=== PATIENT | male | born 1985 | race Caucasian/White ===

== ENCOUNTER 2016-06-02 07:45 | Emergency (ER) | payer OTHER ==
[~2016-06-02] VITALS: Ht 167.6 cm; Wt 59.0 kg
[~2016-06-02 07:45] MED LIST: ALBUTEROL0.09 MG/A1 INH; POLYTRIM O200 GTT/BO OPH
[2016-06-02 07:49] VITALS: BP 120/77
--- NOTE | 2016-06-02 08:14 | ED HAND/WRIST INJURY COMPLAINT ---
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, old records Exam Limitations: no limitations (`) Vital Signs & Intake/Output Vital Signs & Intake/Output Vital Signs Date Time Temp Pulse Resp B/P Pulse O2 O2 Flow FiO2 Ox Delivery Rate 06/02 0749 97.7 65 16 120/77 98 Room Air Allergies Coded Allergies: NO KNOWN ALLERGIES (12/20/11) Reconcile Medications Albuterol Sulfate (Albuterol Sulfate Hfa) 8.5 GM HFA.AER.AD 2 PUFF INH Q4-6 PRN PRN SHORTNESS OF BREATH (Reported) 90 MCG PER PUFF Cephalexin (Keflex) 500 MG CAPSULE 1 CAP PO TID CELLULITIS Naproxen 500 MG TABLET 1 TAB PO BID PRN pain Polytrim (Polytrim Eye Drops) 10 ML DROPS 1 GTT OPH Q6 INFECTION Triage Note: PT STATES HE PULLED A CORD ON A GENERATOR AND HIS HAND GOT CAUGHT IN IT AND PT HAS LACERATION TO RIGHT POINTER FINGER AND WEB SPACE BETWEEN THUMB. Triage Nurses Notes Reviewed? yes Occurred: just prior to arrival Duration: hour(s): (1), constant Timing: recent history Injury Environment: work Severity: moderate, severe Severity Numbers: 9 Pain/Injury Location: Right: Hand. Context: laceration Method of Injury: laceration No Modifying Factors: none Associated Symptoms: none HPI: 30-year-old male presents emergency room status post sustaining laceration to his right hand is prior to arrival when he states he cut it when it struck a fan blade while at work. He states that he wrapped a cord around his hands he started generator when it pulled his hand towards the blade sustaining laceration. He now presents complaining of moderate to severe aching pain. He denies any numbness tingling or difficulty with range of motion of the hand wrist or fingers. He is right-hand dominant. His last tetanus is unknown. He is not taken anything for his pain. There are no associated symptoms or modifying factors otherwise Past History Travel History Traveled to [place] past 21 day No Medical History Any Pertinent Medical History? see below for history Respiratory: asthma Surgical History Surgical History: none Psychosocial History What is your primary language Ukrainian Tobacco Use: Current Daily Use Daily Tobacco Use Amount/Type: => 5 Cigarettes daily ETOH Use: occasional use Illicit Drug Use: METHADONE Family History Hx Contributory? No Review of Systems Review of Systems Constitutional: Reports: see HPI. All Other Systems: Reviewed and Negative Comments Review of systems: See HPI, All other systems negative. Constitutional, no chills no fever, no malaise HEENT: No visual changes no sore throat no congestion Cardiovascular: No chest pain , no palpitation Skin, no rashes, no change in skin Respiratory: No dyspnea no cough no sputum GI: No nausea no vomiting, no diarrhea : No dysuria Muscle skeletal: SEE HPI,No joint pain, no joint swelling, no back pain, no neck pain, Neurologic: No numbness no headache Psych: No stres Heme/endocrine: No bruising no bleeding Immunology: No lymphadenopathy Physical Exam Physical Exam General Appearance: well developed/nourished, alert, awake Hand Left: normal inspection, normal range of motion Hand Right: lacerations Comments: Well-developed well-nourished patient in no apparent distress. HEENT: Atraumatic, extraocular motion intact Neck: Supple, FROM, Back: FROM, Nontender Cardiovascular: Regular rate and rhythms no murmurs rubs Respiratory: No respiratory distress. Patient speaking in full complete sentences. Breath sounds clear to auscultation bilaterally: NO W/R/R Shoulder: Atraumatic/Stable. FROM . Elbow: Atraumatic/stable. FROM. No laxity Upper arm/Forearm: Atraumatic. Nontender. 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 No visualized or palpated foreign body Pulses: Normal/equal radial pulses bilaterally. Brisk cap refill Lower Extremities: full range of motion Neuro: Alert and oriented x3 Skin: Warm & dry;No appreciable rash on exposed skin Psych: Mood affect normal, normal memory normal judgment. Diagram Hands Back 1) Laceration as described above Progress Differential Diagnosis: cellulitis, contusion, compartment syndrome, fracture, sprain Plan of Care: Current Medications Sig/Nola Start time Last Medication Dose Stop Time Status Admin Hydromorphone HCl 1 MG ONCE ONE 06/02 829 CAN (Dilaudid) 06/02 830 Patient medicated with Toradol 30 IV tetanus, medicated with Unasyn IV x-rays ordered from triage The wound was thoroughly irrigated with normal saline Betadine peroxide. The wound was anesthetized by myself using lidocaine 1% 10 mL, sutures 18 3-0 applied. I discussed with the patient at length his x-ray findings. Volar wrist splint applied, neurovasc intact prior to and after application of splint I discussed with the patient at length all of their results. I had an extensive conversation regarding need for close follow up with their primary care physician, ortho, and plastics this week as well as return precautions. I answered all of their questions, they feel comfortable with the plan and follow- up care. I discussed with the patient possibility of foreign body not seen on examination the tendon injury exists RES already motion of all fingers and normal sensation. I discussed the medications that they will receive with the patient. I gave them signs and symptoms that could indicate an adverse reaction. I have advised them to limit their activities until they can see how they respond to the medication. (RUIZ MEJÍA,FELY) Diagnostic Imaging: Viewed by Me: Radiology Read. Discussed w/RAD: Radiology Read. Radiology Impression: PATIENT: BASIM GUTIERREZ PRESENT AGE: 30 PATIENT ACCOUNT NO: [id number] : 87 LOCATION: [facility] ([place]) ORDERING PHYSICIAN: FELY MEJÍA SERVICE DATE: 06/02/16 EXAM TYPE: RAD - XRY-HAND, RIGHT EXAMINATION: XR HAND, RIGHT CLINICAL INFORMATION: Pain and swelling after injury. COMPARISON: Plain films 06/13/2010. TECHNIQUE: AP, lateral, and oblique views of the right hand. FINDINGS: There is a nondisplaced acute fracture through the distal metaphysis of the second metacarpal bone. Alignment of the bones is normal and no other fractures are demonstrated. There is soft tissue swelling at the thenar eminence and over the dorsal metacarpal region. Bone mineralization is normal. The case wires seen on the prior study have been removed. There are no radiopaque foreign bodies. IMPRESSION: 1. There is a nondisplaced acute fracture of the distal metaphysis of the second metacarpal. 2. There is soft tissue swelling as described above. DICTATED BY: VINCENZO DON MD DATE/TIME DICTATED:06/02/16816 TICK ERADICATOR:ILDA DATE/TIME TRANSCRIBED:06/02/16816 CONFIDENTIAL, DO NOT COPY WITHOUT APPROPRIATE AUTHORIZATION. <Electronically signed in Other Vendor System> SIGNED BY: VINCENZO DON MD 06/02/16 0840 Departure Departure Time of Disposition: 938 Disposition: HOME OR SELF CARE Condition: Stable Clinical Impression Primary Impression: Hand laceration Secondary Impressions: Metacarpal bone fracture Referrals: MEDHAT MENJIVAR,ALISSA BRYAN MD,HONG PATIENT HAS NO PRIMARY CARE DR (PCP/Family) Additional Instructions: FOLLOW UP WITH ORTHOPEDIST DR MELÉNDEZ DISCUSSED REGARDING YOUR BROKEN HAND. KEEP SPLINT ON AT ALL TIMES FOLLOW UP WITH HAND SPECIALIST DR BRYAN. RETURN IN 48-72 HOURS FOR WOUND CHECK. Reflexes discussed for wound prophylaxis. Tylenol Motrin for pain ice packs as needed Keep area clean and covered as discussed, bacitracin daily. Return to ER in 10 days for suture removal. The possibility of a retained foreign body not seen during examination today or deep tendon injury exists. Return to ER anytime sooner with any concerns or signs of infection: Redness, warmth, swelling discharge fever or chills. Departure Forms: Customer Survey General Discharge Information Prescriptions: Current Visit Scripts Cephalexin (Keflex) 1 CAP PO TID #21 CAP Naproxen 1 TAB PO BID PRN pain #30 TAB Procedures Splinting Location: RUE Manual Alignment Performed: No Hand-Made Type: orthoglass Splint: volar Splint Applied By: splint applied by me Pre-Proc Neuro Vasc Exam: normal Post-Proc Neuro Vasc Exam: normal Laceration/Wound Repair Laceration/Wound Repair: Wound Location: upper extremity (RIGHT) Wound's Depth, Shape: linear, subcutaneous Wound Length (cm): 7 Wound Explored: clean, no foreign body removed, irrigated extensively Irrigated w/ Saline (ccs): 1000 Betadine Prep? Yes Anesthesia: 1% lidocaine Volume Anesthetic (ccs): 10 Wound Repaired With: sutures Suture Size/Type: 3:0 Number of Sutures: 18 Layer Closure? No Sterile Dressing Applied: Yes Splint Applied? Yes Date of Last Tetanus: 06/02/16 Tetanus Status: not up to date
--- NOTE | 2016-06-02 08:40 | RADIOLOGY REPORT ---
EXAMINATION: XR HAND, RIGHT CLINICAL INFORMATION: Pain and swelling after injury. COMPARISON: Plain films 06/13/2010. TECHNIQUE: AP, lateral, and oblique views of the right hand. FINDINGS: There is a nondisplaced acute fracture through the distal metaphysis of the second metacarpal bone. Alignment of the bones is normal and no other fractures are demonstrated. There is soft tissue swelling at the thenar eminence and over the dorsal metacarpal region. Bone mineralization is normal. The case wires seen on the prior study have been removed. There are no radiopaque foreign bodies. IMPRESSION: 1. There is a nondisplaced acute fracture of the distal metaphysis of the second metacarpal. 2. There is soft tissue swelling as described above.
[2016-06-02] MEDS ORDERED: KEFLEX500 M1 PO (09:42)
[2016-06-02] MEDS ORDERED: NAPROXEN500 M2 PO (10:11)
== END 2016-06-02 10:20 ==
LOC: ERH 07:45
DX: S62.390A Other fracture of second metacarpal bone, right hand, initial encounter for closed fracture (principal); S61.411A Laceration without foreign body of right hand, initial encounter; W22.8XXA Striking against or struck by other objects, initial encounter; Y93.9 Activity, unspecified; Y92.9 Unspecified place or not applicable
CPT/HCPCS: 73130-RT; 90471; 90714; 96374; 96375; J1885

== ENCOUNTER 2016-08-01 18:27 | Emergency (ER) | payer OTHER ==
[~2016-08-01] VITALS: Ht 167.6 cm; Wt 63.5 kg
[~2016-08-01 18:27] MED LIST changes: +KEFLEX500 M1 PO; +NAPROXEN500 M2 PO
[2016-08-01 18:33] VITALS: BP 112/78
--- NOTE | 2016-08-01 20:28 | ED DYSPNEA/ASTHMA COMPLAINT ---
History of Present Illness General Chief Complaint: Wheezing/Asthma Stated Complaint: PT HAVING A PROBLEM BREATHING [id number] Source: patient Exam Limitations: no limitations Vital Signs & Intake/Output Vital Signs & Intake/Output Vital Signs Date Time Temp Pulse Resp B/P B/P Pulse O2 O2 Flow FiO2 Mean Ox Delivery Rate 08/01 2122 98 Room Air 08/019 94 08/01 1833 98.2 88 16 112/78 96 Room Air ED Intake and Output 08/02 0000 08/01 1200 Intake Total 100 Output Total Balance 100 Intake, Oral 100 Patient 140 lb Weight Weight Reported by Patient Measurement Method Allergies Coded Allergies: NO KNOWN ALLERGIES (12/20/11) Reconcile Medications Albuterol Sulfate (Proair Hfa) 90 MCG HFA.AER.AD 2 PUF INH Q4-6 PRN PRN wheezing Prednisone (Deltasone) 20 MG TABLET 40 MG PO DAILY asthma Triage Note: PT STATES HE IS HAVING TROUBLE BREATHING AND IT STARTED A FEW HOURS AGO. 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 Triage Nurses Notes Reviewed? yes Onset: Abrupt Duration: hour(s): Timing: single episode today Severity: mild, moderate Activities at Onset: activity Prior Episodes/Possible Cause: frequent episodes, PHYSICAL ACTIVITY Modifying Factors: Worsens With: movement. Associated Symptoms: cough, wheezing HPI: 30-year-old male with a history of asthma presents complaining of cough shortness of breath and wheezing for the past day. Patient reports she was walking a long distance across town when symptoms started. He currently does not have insurance and does not use a rescue inhaler. He remained intubated or hospitalized for his asthma in the past. He recently quit smoking. Patient currently reports wheezing coughing and shortness of breath that is worse on exertion. He is not taking any medications. There are no alleviating factors. Patient denies chest pain fever sore throat or sick contacts. (JANELL CHIU PA-C) Past History Travel History Traveled to [place] past 21 day No Medical History Any Pertinent Medical History? see below for history Respiratory: asthma Endocrine: HYPOGLYCEMIA Tetanus Vaccine: 06/02/16 Surgical History Surgical History: none Psychosocial History What is your primary language Bengali Tobacco Use: Current Not Daily ETOH Use: denies use Illicit Drug Use: denies illicit drug use, METHADONE Family History Hx Contributory? Yes (JANELL CHIU PA-C) Review of Systems Review of Systems Constitutional: Reports: no symptoms. EENTM: Reports: no symptoms. Respiratory: Reports: see HPI, cough, short of breath, wheezing. Cardiovascular: Reports: no symptoms. GI: Reports: no symptoms. Genitourinary: Reports: no symptoms. Musculoskeletal: Reports: no symptoms. Skin: Reports: no symptoms. Neurological/Psychological: Reports: no symptoms. Hematologic/Endocrine: Reports: no symptoms. Immunologic/Allergic: Reports: no symptoms. All Other Systems: Reviewed and Negative (ARAM DAS,JANELL) Physical Exam Physical Exam General Appearance: well developed/nourished, no apparent distress, alert, awake , anxious, mild distress Head: atraumatic, normal appearance Eyes: Bilateral: normal appearance, PERRL, EOMI. Ears, Nose, Throat: normal pharynx, normal ENT inspection, hearing grossly normal Neck: normal inspection, supple, full range of motion Respiratory: chest non-tender, no respiratory distress, wheezing Cardiovascular: regular rate/rhythm, normal peripheral pulses Peripheral Pulses: 2+ dorsalis pedis (R), 2+ dorsalis pedis (L) Gastrointestinal: normal bowel sounds, soft, non-tender Extremities: normal inspection, normal capillary refill, normal range of motion, no edema Neurologic/Psych: no motor/sensory deficits, awake, alert, oriented x 3, normal gait, normal mood/affect Skin: intact, normal color, warm/dry Lymphatic: no anterior cervical gabbi Comments: Diffuse wheezing auscultated bilaterally. Significant only improved after DuoNeb. Core Measures ACS in differential dx? No Severe Sepsis Present: No Septic Shock Present: No (ARAM DAS,JANELL) Progress Differential Diagnosis: asthma, bronchitis, costochondritis, musculoskeletal pain, pericarditis, pneumonia, viral uri Plan of Care: Current Medications Sig/Nola Start time Last Medication Dose Stop Time Status Admin Methylprednisolone 125 MG ONCE ONE 08/01 2044 CAN (Solu Medrol) 08/01 2045 8:34 PM patient seen and evaluated. DuoNeb and PO prednisone was ordered will reassess patient after meds. 9:08 PM patient is feeling much better after DuoNeb. Wheezing is currently very mild. he be discharged home with albuterol inhaler and by mouth prednisone 40mg x 5 days. Advised patient to follow-up with his primary care doctor. he is nontoxic-appearing and in no respiratory distress. He is in agreement with the plan. (JANELL CHIU PA-C) Initial ED EKG: none (JANELL CHIU PA-C) Departure Departure Disposition: HOME OR SELF CARE Condition: Stable Clinical Impression Primary Impression: Asthma attack Referrals: PATIENT HAS NO PRIMARY CARE DR (PCP/Family) Additional Instructions: Rest and drink plenty of fluids take prednisone as directed for the full course with food. Use albuterol inhaler 2 puffs every 4-6 hours as needed for cough or wheezing. Tylenol or Profen as needed for pain. Follow up with your primary care doctor. Return to the department with any concerns. Please go over all results of today's visit with your primary care doctor. Contact your primary care doctor to let them know you were here in the emergency room. There may be nonspecific findings which may not be related to your visit today here in the emergency room but may require further evaluation and chronic monitoring by your primary care doctor. If you had a laceration today the chance of foreign body always remains. You should follow-up with your primary care doctor for recheck in 3-5 days for a wound check. If you had an x-ray done there is a chance that a fracture could have been missed on initial read and you should follow-up with your primary care doctor for repeat x-rays if symptoms persist. If your blood pressure was elevated here in the emergency room please have rechecked by her primary care doctor within the next 48 hours by your primary care doctor. If you were prescribed a narcotic here in the emergency room or any type of controlled substances you're not allowed to drive while taking this medication or operate any type of heavy machinery. Narcotics can make you feel lightheaded dizziness nausea and can cause constipation. You may need to peanut picker a stool softener. Thank you for choosing [facility] emergency room. Please return to the emergency room immediately if you have any other concerns worsening of symptoms. Departure Forms: Customer Survey General Discharge Information Prescriptions: Current Visit Scripts Albuterol Sulfate (Proair Hfa) 2 PUF INH Q4-6 PRN PRN wheezing #1 INHAL Prednisone (Deltasone) 40 MG PO DAILY #10 TAB (JANELL CHIU PA-C) PA/PMO MANAGER Co-Sign Statement Statement: ED Attending supervision documentation- [] I saw and evaluated the patient. I have also reviewed all the pertinent lab results and diagnostic results. I agree with the findings and the plan of care as documented in the PA's/PMO MANAGER's documentation. [X] I have reviewed the ED Record and agree with the PA's/PMO MANAGER's documentation. [] Additions or exceptions (if any) to the PAs/PMO MANAGER's note and plan are summarized below: [] (ANNETTE MENJIVAR,CAROLE Garg) Critical Care Note Critical Care Note Critical Care Time: non-applicable (ARAM DAS,JANELL)
[2016-08-01] MEDS ORDERED: DELTASONE20 MG PO (21:12)
[2016-08-01] MEDS ORDERED: PROAIR HFA8.5 GM INH (21:12)
== END 2016-08-01 21:24 ==
LOC: ERH 18:27
DX: J45.909 Unspecified asthma, uncomplicated (principal); Z87.891 Personal history of nicotine dependence
CPT/HCPCS: 1263; 1395